=== PATIENT | female | born 1975 | race Caucasian/White ===

== ENCOUNTER 2023-12-21 12:47 | Outpatient (REF) | payer BC, SELFPAY ==
[2023-12-21 14:27] LABS: HCT 41.9 % (36.0-46.0); HGB 14.1 g/dL (11.2-15.7); MCH 31.3 pg (27.0-33.0); MCHC 33.7 % (32.0-36.0); MCV 93 fL (80-95); MPV 11.2 fL (8.0-11.0); Platelet Count 313 10^3/uL (130-400); RBC 4.51 10^6/uL (3.93-5.22); RDW 11.4 % (11.7-14.6); RDW-SD 38.9 fL; WBC 8.33 10^3/uL (4.4-10.8)
[2023-12-21 15:21] LABS: ALT 24 U/L (14-59); AST 20 U/L (15-37); Albumin 3.8 g/dL (3.4-5.0); Alkaline Phosphatase 52 U/L (46-116); Anion Gap 8.3 mmol/L (3-11); BUN 15 mg/dL (7-18); Bilirubin, Total 0.2 mg/dL (0.2-1.0); CO2 28.7 mmol/L (21.0-32.0); CREATININE 0.7 mg/dL (0.55-1.02); Calcium 9.3 mg/dL (8.5-10.1); Calculated LDL 98 mg/dL (<100); Chloride 106 mmol/L (98-107); Cholesterol 186 mg/dL (<200); Estimated GFR 107.95 (mL/min/1.73m2); Glucose 103 mg/dL (74-106); HDL Cholesterol 71 mg/dL (40-60); Sodium 143 mmol/L (136-145); TSH 1.22 uIU/Ml (0.36-3.74); Total Protein 7.1 g/dL (6.4-8.2); Triglyceride 89 mg/dL (<150)
== END 2023-12-21 12:48 | disposition home or self-care (01) ==
LOC: NCHCN 12:47
PROVIDERS: PCP Nurse Practitioner Family; Visit Provider Family Medicine
DX: Z00.00 Encounter for general adult medical examination without abnormal findings (principal); R63.5 Abnormal weight gain; Z13.0 Encounter for screening for diseases of the blood and blood-forming organs and certain disorders involving the immune mechanism; Z13.220 Encounter for screening for lipoid disorders
CPT/HCPCS: 80053; 80061; 85027; 84443